=== PATIENT | male | born 1955 | race Caucasian/White ===

== ENCOUNTER 2017-04-11 11:49 | Day surgery (SDC) | payer MEDICAID, OTHER, SELFPAY ==
[2017-04-11] MEDS ORDERED: Ondansetron PF 4 MG/2 ML Vial SLOW IVP SCH (12:00)
[2017-04-11] MEDS ORDERED: Dexamethasone 10 MG/ML VIAL SLOW IVP SCH ×2 (12:00→13:15)
[2017-04-11] MEDS ORDERED: SODIUM CHLORIDE 0.9% IVPB SCH ×2 (12:00→12:15)
[2017-04-11] MEDS ORDERED: DOCETAXEL IVPB SCH ×2 (12:00→12:15)
[2017-04-11] MEDS ORDERED: CARBOplatin 650 MG in Sodium Chloride 0.9% 250 ML 250 ML IVPB SCH (12:00)
[2017-04-11 14:19] VITALS: BP 133/78; TEMP 98
== END 2017-04-11 16:10 | disposition home or self-care (01) ==
LOC: EDUNIT# 11:49 → ONC/OP 11:49
PROVIDERS: ATTEND Internal Medicine Hematology & Oncology
DX: Z51.11 Encounter for antineoplastic chemotherapy (principal); C09.0 Malignant neoplasm of tonsillar fossa; I10 Essential (primary) hypertension; F17.210 Nicotine dependence, cigarettes, uncomplicated; Z98.890 Other specified postprocedural states; Z82.49 Family history of ischemic heart disease and other diseases of the circulatory system
CPT/HCPCS: 96375; 96413; 96417; J1100; J2405; J7050; J9045; J9171

== ENCOUNTER 2017-06-13 10:07 | Day surgery (SDC) | payer MEDICAID ==
[2017-06-13] MEDS ORDERED: Ondansetron HCl/PF 4 MG/2 ML Vial IVP SCH (10:30)
[2017-06-13] MEDS ORDERED: DOCETAXEL IVPB SCH (10:30)
[2017-06-13] MEDS ORDERED: SODIUM CHLORIDE IVPB SCH ×2 (10:30)
[2017-06-13] MEDS ORDERED: ADMIXTURE FEE IVPB SCH ×2 (10:30)
[2017-06-13] MEDS ORDERED: Dexamethasone 10 MG/ML VIAL SLOW IVP SCH (10:30)
[2017-06-13] MEDS ORDERED: CARBOPLATIN IVPB SCH (10:30)
[2017-06-13 11:03] VITALS: BP 143/67; TEMP 97.7
[2017-06-13] MEDS ORDERED: Sodium Chloride 0.9% 40 ML ONE (11:06)
== END 2017-06-13 13:41 | disposition home or self-care (01) ==
LOC: EDUNIT# 10:07 → ONC/OP 10:07
PROVIDERS: ATTEND Internal Medicine Hematology & Oncology
DX: Z51.11 Encounter for antineoplastic chemotherapy (principal); C09.0 Malignant neoplasm of tonsillar fossa; I10 Essential (primary) hypertension; F17.210 Nicotine dependence, cigarettes, uncomplicated; Z79.52 Long term (current) use of systemic steroids; Z79.899 Other long term (current) drug therapy
CPT/HCPCS: 96375; 96413; 96417; A4216; J1100; J2405; J7050; J9045; J9171

== ENCOUNTER 2017-07-01 09:16 | Outpatient (CLI) | payer OTHER ==
[~2017-07-01 09:16] MED LIST: ISOVUE-370 76%-LOCM 1 ML ONE
== END 2017-07-01 09:17 | disposition home or self-care (01) ==
LOC: BICCT 09:16 → EDUNIT# 10:00
PROVIDERS: ATTEND Internal Medicine Hematology & Oncology
DX: C09.0 Malignant neoplasm of tonsillar fossa (principal); C76.0 Malignant neoplasm of head, face and neck; C78.2 Secondary malignant neoplasm of pleura; R59.0 Localized enlarged lymph nodes
CPT/HCPCS: 70491; 71260

== ENCOUNTER 2017-07-04 11:33 | Day surgery (SDC) | payer OTHER ==
[2017-07-04] MEDS ORDERED: DOCETAXEL IVPB SCH (11:45)
[2017-07-04] MEDS ORDERED: Dexamethasone 10 MG/ML VIAL SLOW IVP SCH (11:45)
[2017-07-04] MEDS ORDERED: CARBOplatin 650 MG in Sodium Chloride 0.9% 250 ML 250 ML IVPB SCH (11:45)
[2017-07-04] MEDS ORDERED: Ondansetron HCl/PF 4 MG/2 ML Vial SLOW IVP SCH (11:45)
[2017-07-04] MEDS ORDERED: SODIUM CHLORIDE 0.9% IVPB SCH (11:45)
[2017-07-04] MEDS ORDERED: Sodium Chloride 0.9% 30 ML ONE (11:54)
[2017-07-04] MEDS ORDERED: Dexamethasone 10 MG, Ondansetron 2MG/ML MDV 10 MG in Sodium Chloride 0.9% 50 ML IVPB SCH (12:00)
== END 2017-07-04 15:28 | disposition home or self-care (01) ==
LOC: ONC/OP 11:33
PROVIDERS: ATTEND Internal Medicine Medical Oncology
DX: Z51.11 Encounter for antineoplastic chemotherapy (principal); C09.0 Malignant neoplasm of tonsillar fossa; I10 Essential (primary) hypertension; F17.210 Nicotine dependence, cigarettes, uncomplicated; Z98.890 Other specified postprocedural states
CPT/HCPCS: 96367; 96413; 96417; A4216; J1100; J2405; J7050; J9045; J9171

== ENCOUNTER 2017-07-25 11:29 | Day surgery (SDC) | payer OTHER ==
[2017-07-25 12:12] VITALS: BP 130/69; TEMP 98.2
[2017-07-25] MEDS ORDERED: SODIUM CHLORIDE 0.9% IVPB SCH (12:15)
[2017-07-25] MEDS ORDERED: Dexamethasone 10 MG, Ondansetron 2MG/ML MDV 10 MG in Sodium Chloride 0.9% 50 ML IVPB SCH (12:15)
[2017-07-25] MEDS ORDERED: CARBOplatin 650 MG in Sodium Chloride 0.9% 250 ML 250 ML IVPB SCH (12:15)
[2017-07-25] MEDS ORDERED: DOCETAXEL IVPB SCH (12:15)
== END 2017-07-25 16:43 | disposition home or self-care (01) ==
LOC: ONC/OP 11:29
PROVIDERS: ATTEND Internal Medicine Medical Oncology
DX: Z51.11 Encounter for antineoplastic chemotherapy (principal); C09.0 Malignant neoplasm of tonsillar fossa; I10 Essential (primary) hypertension; F17.200 Nicotine dependence, unspecified, uncomplicated; Z79.899 Other long term (current) drug therapy
CPT/HCPCS: 96375; 96413; 96417; J1100; J2405; J7050; J9045; J9171

== ENCOUNTER 2017-08-15 11:56 | Day surgery (SDC) | payer OTHER ==
[2017-08-15] MEDS ORDERED: Sodium Chloride 0.9% 40 ML ONE (12:14)
[2017-08-15] MEDS ORDERED: DOCETAXEL IVPB SCH (12:15)
[2017-08-15] MEDS ORDERED: SODIUM CHLORIDE 0.9% IVPB SCH (12:15)
[2017-08-15] MEDS ORDERED: Ondansetron HCl/PF 10 MG in Sodium Chloride 0.9% 50 ML IVPB SCH (12:15)
[2017-08-15] MEDS ORDERED: CARBOplatin 650 MG in Sodium Chloride 0.9% 250 ML 250 ML IVPB SCH (12:15)
[2017-08-15] MEDS ORDERED: Dexamethasone 10 MG, Ondansetron 2MG/ML MDV 10 MG in Sodium Chloride 0.9% 50 ML IVPB SCH (12:15)
[2017-08-15] MEDS ORDERED: Dexamethasone 10 MG in Sodium Chloride 0.9% 50 ML IVPB SCH (12:15)
[2017-08-15 12:56] VITALS: BP 138/72; TEMP 97.6
== END 2017-08-15 18:21 | disposition home or self-care (01) ==
LOC: ONC/OP 11:56
PROVIDERS: ATTEND Internal Medicine Medical Oncology
DX: Z51.11 Encounter for antineoplastic chemotherapy (principal); C09.0 Malignant neoplasm of tonsillar fossa; I10 Essential (primary) hypertension; F17.210 Nicotine dependence, cigarettes, uncomplicated
CPT/HCPCS: 96367; 96413; 96417; A4216; J1100; J2405; J7050; J9045; J9171

== ENCOUNTER 2017-09-03 09:03 | Outpatient (CLI) | payer OTHER ==
[2017-09-03] MEDS ORDERED: ISOVUE-370 76%-LOCM 1 ML ONE ×2 (11:16→11:18)
== END 2017-09-03 09:04 | disposition home or self-care (01) ==
LOC: BICCT 09:03
PROVIDERS: ATTEND Internal Medicine Hematology & Oncology
DX: C09.0 Malignant neoplasm of tonsillar fossa (principal); R91.8 Other nonspecific abnormal finding of lung field
CPT/HCPCS: 70491; 71260

== ENCOUNTER 2017-09-12 09:10 | Outpatient (CLI) | payer OTHER ==
[2017-09-12 10:48] LABS: ALT (SGPT) Less than 7 U/L (8-55); AST (SGOT) 14 U/L (5-34); Alkaline Phosphatase 83 U/L (40-150); Anion Gap 11 mmol/L (10-20); BUN (Urea Nitrogen) 7 mg/dL (8.4-25.7); Bilirubin, Total 0.9 mg/dL (0.2-1.2); Calc. Creatinine Clearance 0 mL/min (70-130); Calcium 9.2 mg/dL (7.8-10.44); Carbon Dioxide 27 mmol/L (22-29); Chloride 104 mmol/L (98-107); Estimated GFR-MDRD Greater than 90; Globulin 2.4 g/dL (2.4-3.5); Glucose 89 mg/dL (70-105); Potassium 3.4 mmol/L (3.5-5.1); Protein, Total 6.4 g/dL (6.0-8.3); Sodium 139 mmol/L (136-145)
[2017-09-12 10:58] LABS: #Lymphocytes 1.2 thou/uL (1.20-3.40); #Monocytes 0.6 thou/uL (0.11-0.59); #Neutrophils 3.9 thou/uL (1.40-6.50); %Basophils 0.7 % (0.0-1.0); %Eosinophils 0.4 % (0.0-10.0); %Monocytes 10.8 % (0.0-10.0); Hemoglobin 10.2 g/dL (14.0-18.0); MDiff Complete? YES; Macrocytosis SLIGHT = 6-15 cells (100X) (0-5/hpf); Mean Corpuscular HGB CONC 34.9 g/dL (32.0-36.0); Mean Corpuscular Hemoglobin 38.1 pg (27.0-31.0); Mean Platelet Volume 7.1 fL (7.4-10.4); Platelet Count 210 thou/uL (130-400); RBC Distribution Width 17.6 % (11.5-14.5); Red Blood Cell (RBC) Count 2.69 mill/uL (4.70-6.10); White Blood Cell (WBC) Count 5.8 thou/uL (4.8-10.8)
== END 2017-09-12 09:11 | disposition home or self-care (01) ==
LOC: LABBT 09:10
PROVIDERS: ATTEND Surgery
DX: Z01.818 Encounter for other preprocedural examination (principal); C14.0 Malignant neoplasm of pharynx, unspecified
CPT/HCPCS: 80053; 85025; 93005; 93010

== ENCOUNTER → 2017-09-13 | Day surgery (SDC) | payer OTHER ==
[2017-09-12 09:30] VITALS: BMI 20.3
[~2017-09-13] MED LIST changes: +Bupivacaine/Epinephrine 0.25% 30 ML VIAL ONE; +CEFAZOLIN/Water 2 GM/20 ML SYRINGE ONE; -ISOVUE-370 76%-LOCM 1 ML ONE; +Ketamine 50 MG/ML VIAL ONE; +Midazolam HCl 5 mg/5 ml Vial ONE; +PROPOFOL 200 MG/20 ML VIAL ONE
--- NOTE | 2017-09-13 10:26 | OP ---
DATE OF PROCEDURE: 09/13/2017 PREOPERATIVE DIAGNOSIS: Throat cancer. SURGEON: Yusuf Hardy M.D. PROCEDURE PERFORMED: MediPort. INDICATIONS: This is a 61-year-old male who has throat cancer, needs access for chemotherapy. FINDINGS: Good placement of right subclavian. DESCRIPTION OF PROCEDURE: After informed consent was obtained, patient was taken to the operating ro om and given total intravenous anesthesia, placed in the supine position. Chest and neck prepped and draped in usual fashion. Local anesthesia infiltrated subcutaneously and deep. The patient placed in Trendelenburg position. An attempt was made to access the left subclavian vein. Introducer needl e was inserted in left subclavian, initially got good backflow of blood, but I could get the wire to thread, so aborted that and moved to the right side. Again, local anesthesia infiltrated subcutaneou sly and deep. Introducer inserted right subclavian. Good backflow of venous blood. J-wire threaded easily. Fluoroscopy was used showed good placement in superior vena cava. The skin and subcutaneou s anesthetized with local anesthesia. A transverse chest wall incision was performed. Subcu divided sharply. A pocket was created sharply on the chest wall with electrocautery. The tunneling device was used to connect the two incisions. The catheter brought through the tunnel and connected to the MediPort. The MediPort was secured to the pectoralis fascia with interrupted 2-0 Prolene suture. Th e system was accessed with a Weiss needle and flushed with heparinized saline. The catheter was cut to size. The peel-away introducer inserted over the wire. The wire was removed. The catheter inser rahul through the peel-away introducer and the peel-away introducer removed. Fluoroscopy again used sh owed good placement in superior vena cava. The system accessed with Weiss needle. Good backflow of venous blood, flushed with heparinized saline. Subcutaneous reapproximated with interrupted 3-0 Vicr yl. Skin closed with a running subcuticular 4-0 Rapide. Dermabond applied. The patient tolerated t he procedure well and was transferred to recovery in good condition. Sponge and needle count verifie d correct x2.
--- NOTE | 2017-09-13 11:28 | RAD ---
TWO AP VIEWS OF THE CHEST: INDICATION: MediPort placement. COMPARISON: None. FINDINGS: There is a right subclavian chest wall port in place. The catheter tubing is intact. The catheter t ip projects in the region of the SVC. The visualized lungs are clear. No definite pneumothorax is e vident. Cardiomediastinal silhouette is within normal limits. No acute osseous abnormality is evide nt. IMPRESSION: Right chest wall MediPort placement. No definite complication evident. POS: [facility]
== END ==
LOC: SDC 07:06
PROVIDERS: ATTEND Surgery
PROC: 05H533Z Insertion of Infusion Device into Right Subclavian Vein, Percutaneous Approach (ICD-10-PCS; principal; 2017-09-13)
DX: C14.0 Malignant neoplasm of pharynx, unspecified (principal); F17.200 Nicotine dependence, unspecified, uncomplicated
CPT/HCPCS: 71045; 76001; 80053; 85025; 93005; 93010; C1788; J1642; J2250; J2704

== ENCOUNTER 2017-10-18 08:12 | Outpatient (CLI) | payer OTHER ==
[2017-10-18 09:17] LABS: #Basophils 0.1 thou/uL (0.0-0.2); #Eosinphils 0.1 thou/uL (0.0-0.7); #Lymphocytes 1.9 thou/uL (1.20-3.40); #Monocytes 0.6 thou/uL (0.11-0.59); %Basophils 0.7 % (0.0-1.0); %Eosinophils 1.6 % (0.0-10.0); %Lymphocytes 24.3 % (21.0-51.0); %Monocytes 7.9 % (0.0-10.0); %Neutrophils 65.5 % (42.0-75.0); Hemoglobin 13.3 g/dL (14.0-18.0); Mean Corpuscular HGB CONC 34.5 g/dL (32.0-36.0); Mean Corpuscular Hemoglobin 39.3 pg (27.0-31.0); Mean Platelet Volume 6.9 fL (7.4-10.4); Platelet Count 236 thou/uL (130-400); RBC Distribution Width 14.5 % (11.5-14.5); Red Blood Cell (RBC) Count 3.39 mill/uL (4.70-6.10); White Blood Cell (WBC) Count 7.6 thou/uL (4.8-10.8)
--- NOTE | 2017-10-18 15:18 | EKG ---
Test Reason : Blood Pressure : / mmHG Vent. Rate : 068 BPM Atrial Rate : 068 BPM P-R Int : 136 ms QRS Dur : 078 ms QT Int : 368 ms P-R-T Axes : 089 -38 079 degrees QTc Int : 391 ms Poor data quality, interpretation may be adversely affected Sinus rhythm with marked sinus arrhythmia Left axis deviation Abnormal ECG Confirmed by CARMENCITA FONTANA MD ([id number]) on 10/18/2017 3:17:38 PM Referred By: SUSU Confirmed By:CARMENCITA FONTANA MD
== END 2017-10-18 08:13 | disposition home or self-care (01) ==
LOC: LABBT 08:12
PROVIDERS: ATTEND Surgery
DX: Z01.818 Encounter for other preprocedural examination (principal); C14.0 Malignant neoplasm of pharynx, unspecified
CPT/HCPCS: 85025; 93005; 93010

== ENCOUNTER 2017-10-21 13:26 | Day surgery (SDC) | payer OTHER ==
[2017-10-21] MEDS ORDERED: Nivolumab 240 MG in Sodium Chloride 0.9% 250 ML 250 ML IVPB SCH (13:45)
[2017-10-21] MEDS ORDERED: Sodium Chloride 0.9% 20 ML ONE (13:48)
[2017-10-21 13:57] VITALS: BP 124/66; TEMP 98.3
== END 2017-10-21 15:15 | disposition home or self-care (01) ==
LOC: ONC/OP 13:26
PROVIDERS: ATTEND Internal Medicine Hematology & Oncology
DX: Z51.11 Encounter for antineoplastic chemotherapy (principal); C09.0 Malignant neoplasm of tonsillar fossa; I10 Essential (primary) hypertension; F17.200 Nicotine dependence, unspecified, uncomplicated; Z79.899 Other long term (current) drug therapy
CPT/HCPCS: 36415; 80053; 82248; 83615; 84100; 84436; 84443; 84550; 96413; A4216; J1642; J7050; J9299

== ENCOUNTER 2017-11-04 08:39 | Day surgery (SDC) | payer OTHER ==
[2017-11-04] MEDS ORDERED: Sodium Chloride 0.9% 30 ML ONE (08:48)
[2017-11-04] MEDS ORDERED: Sodium Chloride 0.9% 20 ML ONE (08:51)
[2017-11-04] MEDS ORDERED: Nivolumab 240 MG in Sodium Chloride 0.9% 250 ML 250 ML IVPB SCH (10:45)
[2017-11-04 12:43] VITALS: BP 129/76; TEMP 98.1
== END 2017-11-04 12:46 | disposition home or self-care (01) ==
LOC: ONC/OP 08:39
PROVIDERS: ATTEND Internal Medicine Hematology & Oncology
DX: Z51.11 Encounter for antineoplastic chemotherapy (principal); C09.0 Malignant neoplasm of tonsillar fossa; C79.89 Secondary malignant neoplasm of other specified sites; C78.00 Secondary malignant neoplasm of unspecified lung; Z79.899 Other long term (current) drug therapy; Z95.828 Presence of other vascular implants and grafts
CPT/HCPCS: 96413; A4216; J1642; J7050; J9299

== ENCOUNTER → 2017-11-18 | Day surgery (SDC) | payer OTHER ==
[~2017-11-18] MED LIST changes: -Bupivacaine/Epinephrine 0.25% 30 ML VIAL ONE; -CEFAZOLIN/Water 2 GM/20 ML SYRINGE ONE; -Ketamine 50 MG/ML VIAL ONE; -Midazolam HCl 5 mg/5 ml Vial ONE; +Nivolumab 240 MG in Sodium Chloride 0.9% 250 ML 250 ML IVPB SCH; -PROPOFOL 200 MG/20 ML VIAL ONE; +Sodium Chloride 0.9% 30 ML ONE
== END ==
LOC: ONC/OP 13:59
PROVIDERS: ATTEND Internal Medicine Hematology & Oncology
DX: Z51.11 Encounter for antineoplastic chemotherapy (principal); C09.0 Malignant neoplasm of tonsillar fossa; I10 Essential (primary) hypertension; F17.200 Nicotine dependence, unspecified, uncomplicated; Z79.899 Other long term (current) drug therapy
CPT/HCPCS: 36415; 80053; 82248; 83615; 84100; 84436; 84443; 84550; A4216; J1642; J7050; J9299

== ENCOUNTER 2017-11-19 08:20 | Day surgery (SDC) | payer OTHER ==
[2017-11-19] MEDS ORDERED: Nivolumab 240 MG in Sodium Chloride 0.9% 250 ML 250 ML IVPB SCH (08:45)
[2017-11-19 10:09] VITALS: BP 107/72; TEMP 97.8
== END 2017-11-19 10:58 | disposition home or self-care (01) ==
LOC: ONC/OP 08:20
PROVIDERS: ATTEND Internal Medicine Hematology & Oncology
DX: Z51.11 Encounter for antineoplastic chemotherapy (principal); C09.0 Malignant neoplasm of tonsillar fossa
CPT/HCPCS: 96413; J7050; J9299

== ENCOUNTER 2017-12-02 09:18 | Day surgery (SDC) | payer OTHER ==
[2017-12-02] MEDS ORDERED: Nivolumab 240 MG in Sodium Chloride 0.9% 250 ML 250 ML IVPB SCH (10:45)
[2017-12-02 10:49] VITALS: BP 117/70; TEMP 98.6
[2017-12-02] MEDS ORDERED: Sodium Chloride 0.9% 20 ML ONE ×2 (11:14→12:10)
== END 2017-12-02 17:42 | disposition home or self-care (01) ==
LOC: ONC/OP 09:18
PROVIDERS: ATTEND Internal Medicine Hematology & Oncology
DX: Z51.11 Encounter for antineoplastic chemotherapy (principal); C09.0 Malignant neoplasm of tonsillar fossa; F17.210 Nicotine dependence, cigarettes, uncomplicated; I10 Essential (primary) hypertension; Z79.899 Other long term (current) drug therapy; Z95.828 Presence of other vascular implants and grafts
CPT/HCPCS: 96413; A4216; J1642; J7050; J9299

== ENCOUNTER 2017-12-16 11:14 | Day surgery (SDC) | payer OTHER ==
[2017-12-16] MEDS ORDERED: Sodium Chloride 0.9% 20 ML ONE (11:18)
[2017-12-16] MEDS ORDERED: Nivolumab 240 MG in Sodium Chloride 0.9% 250 ML 250 ML IVPB SCH (11:30)
[2017-12-16 12:02] VITALS: BP 110/57; TEMP 99.1
== END 2017-12-16 14:01 | disposition home or self-care (01) ==
LOC: ONC/OP 11:14
PROVIDERS: ATTEND Internal Medicine Hematology & Oncology
DX: Z51.11 Encounter for antineoplastic chemotherapy (principal); C09.0 Malignant neoplasm of tonsillar fossa; C78.00 Secondary malignant neoplasm of unspecified lung; F17.210 Nicotine dependence, cigarettes, uncomplicated; I10 Essential (primary) hypertension; Z95.828 Presence of other vascular implants and grafts
CPT/HCPCS: 96413; J1642; J7050; J9299

== ENCOUNTER 2017-12-30 10:45 | Day surgery (SDC) | payer OTHER ==
[2017-12-30] MEDS ORDERED: Sodium Chloride 0.9% 20 ML ONE (10:57)
[2017-12-30] MEDS ORDERED: Nivolumab 240 MG in Sodium Chloride 0.9% 250 ML 250 ML IVPB SCH (11:00)
[2017-12-30 11:26] VITALS: BP 109/67; TEMP 98.1
== END 2017-12-30 13:39 | disposition home or self-care (01) ==
LOC: ONC/OP 10:45
PROVIDERS: ATTEND Internal Medicine Hematology & Oncology
DX: Z51.12 Encounter for antineoplastic immunotherapy (principal); C09.0 Malignant neoplasm of tonsillar fossa; I10 Essential (primary) hypertension; F17.210 Nicotine dependence, cigarettes, uncomplicated; Z79.899 Other long term (current) drug therapy
CPT/HCPCS: 96413; J1642; J7050; J9299

== ENCOUNTER 2018-01-09 08:20 | Outpatient (CLI) | payer OTHER ==
--- NOTE | 2018-01-09 13:04 | CT ---
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 COMPARISON: 09/03/2017 FINDINGS: The tumor mass component involving the right physician relations specialist space has become much larger and causes a gre ater degree of severe destruction of the right mandibular body. There is prominent necrosis within t his tumor, centered slightly to the right of the mandibular body, containing fluid, gas and fragments of bone. This physician relations specialist space component of the mass is now confluent with and inseparable from the huge right -sided neck mass, with numerous pockets of necrosis and irregularly shaped pockets of gas, consistent with a conglomeration of numerous right-sided cervical lymph nodes. Measurements are necessarily im precise because of the very irregular shape of this mass. It was previously approximately 6.5 x 4 x 5.5 cm. It is now approximately 11 x 7 x 8.5 cm. It is also inseparable from the diffuse, extensive infiltrative tumor involvement of the lingual tonsil, bilateral tonsillar fossae, hard palate and so ft palate, and right submandibular space. The largest component of the bulky tumor on the right is again noted to completely obliterate the upp er portion of the right internal jugular vein. Superior to that, the subcranial portion of the inter nal jugular vein has a filling defect consistent with thrombus or tumor thrombus, that propagates int o the right sigmoid sinus and right transverse venous sinus. The full extent of this is not entirely included on this scan. Again noted is the enlarged, metastatic, contralateral left level II lymph node, which currently handy ures approximately 2 x 2.5 x 3 cm. It has not significantly changed in size. There are several tiffany cent nonnecrotic satellite lymph nodes. There is a new finding of several significantly enlarged right anterior, upper, and mediastinal malig nant lymph nodes on the current CT. See the separate report of the chest CT. Soft tissue edema causing effacement of the right supraglottic larynx and right paraglottic larynx is actually slightly improved. This probably represents post radiation edema. IMPRESSION: 1. Overall significant interval worsening of malignant neoplastic tumor of neck, involving multiple sites, since 09/03/2017. 2. The largest tumor component in the right neck is much larger now. 3. The component in the right physician relations specialist space, destroying the right mandible, is also larger and ca using worse bone destruction. 4. Interval worsening of upper mediastinum metastatic lymphadenopathy. 5. There continues to be severe extrinsic compression of the right internal jugular vein, associated with thrombus or tumor thrombus in the upper aspect of the internal jugular vein, propagating into t he right-sided dural venous sinuses. 6. The contralateral left level II necrotic metastatic lymph node has not significantly increased in size since the prior scan. 7. In addition to fluid , there is also gas in the large tumor masses of the right physician relations specialist space and right neck, raising the possibility of superimposed infection. POS: [facility]
[2018-01-09] MEDS ORDERED: ISOVUE-370 76%-LOCM 1 ML ONE (13:58)
--- NOTE | 2018-01-09 14:07 | CT ---
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 COMPARISON: 09/03/17. FINDINGS: There is a new finding of a large number of noncalcified pulmonary nodules, in the bilateral upper lo bes, bilateral lower lobes, and right middle lobe. They are larger in the lower lobes compared to the upper lobes. The largest one is 1.4 x 1.1 x 1.4 cm in the right lower lobe (79 of 136, series 3; 84 of 113, series 6; 52 of 81, series 5). The smaller ones are a few millimeters in size each. There is another new finding of multiple malignant mediastinal and bilateral hilar lymph nodes. The l argest right anterior paratracheal lymph node is approximately 2 x 2.5 x 4.5 cm. This could be a ti lomeration of several adjacent lymph nodes. Subcarinal conglomeration of lymph nodes is 2 x 5 x 4.5 c m. Mildly enlarged bilateral hilar metastatic lymph nodes, right greater than left. The previously demonstrated approximately 3.3 x 1.5 x 3.1 cm posteromedial pleural mass indenting the posterobasilar segment of left lower lobe has decreased in size and currently measures approximately 2.5 x 0.9 x 2.8 cm (94 of 136, series 2; 41 of 113, series 6). The other multiple left metastatic pl eural masses are currently mostly inconspicuous. No pleural effusion or pneumothorax. No consolidation or pulmonary edema. No cardiomegaly. Limited im ages of the upper abdomen demonstrate a new finding of a large number of metastatic masses throughout the left and right lobes of the liver. Most of them are several centimeters in size. There is anothe r new finding of diffuse enlargement of the bilateral adrenal glands representing metastases. IMPRESSION: 1. Large number of new bilateral pulmonary metastases. 2. New finding of malignant mediastinal and hilar lymphadenopathy. 3. Large number of new hepatic metastases. 4. New bilateral adrenal metastases. 5. Interval improvement in the left pleural metastases. JN R POS: [facility]
== END 2018-01-09 08:21 | disposition home or self-care (01) ==
LOC: BICCT 08:20
PROVIDERS: ATTEND Internal Medicine Hematology & Oncology
DX: C09.0 Malignant neoplasm of tonsillar fossa (principal); C78.00 Secondary malignant neoplasm of unspecified lung; C78.7 Secondary malignant neoplasm of liver and intrahepatic bile duct; C79.71 Secondary malignant neoplasm of right adrenal gland; C79.72 Secondary malignant neoplasm of left adrenal gland; C78.2 Secondary malignant neoplasm of pleura; R59.0 Localized enlarged lymph nodes
CPT/HCPCS: 70491; 71260